=== PATIENT | female | born 1970 | race Caucasian/White ===

== ENCOUNTER → 2016-11-26 | Outpatient (CLI) | payer MEDICAID ==
[~2016-11-26] MED LIST: CELEXA 20MG20 MG/TAB PO
== END ==
LOC: COL.LAB 15:15
DX: M79.604 Pain in right leg (principal)

== ENCOUNTER → 2016-12-29 | Outpatient (CLI) | payer MEDICAID | LOC: COL.RAD 11:02 | DX: R10.2 Pelvic and perineal pain (principal) ==

== ENCOUNTER 2017-04-14 11:30 | Outpatient (RCR) | payer MEDICAID | END 2017-04-24 12:27 | disposition still patient (30) | LOC: WSPT 11:30 | DX: M54.5 Low back pain (principal); G89.29 Other chronic pain ==

== ENCOUNTER → 2017-11-19 | Outpatient (CLI) | payer MEDICAID | LOC: MC.RAD 11:08 | DX: Z12.31 Encounter for screening mammogram for malignant neoplasm of breast (principal) ==

== ENCOUNTER 2018-04-29 17:24 | Emergency (ER) | payer MEDICAID ==
[~2018-04-29] VITALS: Ht 167.6 cm; Wt 109.1 kg
[2018-04-29 18:33] LABS: BASO # 0.1 (0.0-0.2); BASO % 0.4 % (0.0-2.0); EOS # 0.1 (0.0-0.7); EOS % 0.5 % (0-4.0); GRAN # 11.1 (1.4-6.5); GRAN % 75.6 % (42.2-75.2); HEMATOCRIT 44.3 % (37.0-47.0); HEMOGLOBIN 15.3 g/dl (12.5-16.0); LYMPH # 2.4 (1.2-3.4); LYMPH % 16.2 % (20.0-51.0); MEAN CELL VOLUME 86 fl (80.0-100.0); MEAN CORPUSCULAR HEMOGLOBIN 30 pg (27.0-31.0); MEAN CORPUSCULAR HGB CONC 35 g/dl (33.0-37.0); MEAN PLATELET VOLUME 11.6 fl (7.4-10.4); PLATELET COUNT 156 K/mm3 (130-400); RED BLOOD COUNT 5.14 M/mm3 (4.10-5.30); REDCELL DISTRIBUTION WIDTH-CV 11.7 % (11.5-14.5)
[2018-04-29] MEDS ORDERED: PAXIL 20MG20 MG PO (18:34)
[2018-04-29] MEDS ORDERED: GLUCOTROL10 MG PO (18:35)
[2018-04-29] MEDS ORDERED: PRAVACHOL 20MG20 MG PO (18:35)
[2018-04-29] MEDS ORDERED: AMITRIPTYLINE H50 M1 PO (18:35)
[2018-04-29 18:44] LABS: ALBUMIN 4.3 gm/dL (3.5-5.0); BILIRUBIN,TOTAL 0.9 mg/dL (0.0-1.0); CALCIUM 9.2 mg/dL (8.4-10.2); CREATININE, serum 0.52 mg/dL (0.52-1.25); POTASSIUM 4.1 mmol/L (3.4-5.0); TOTAL PROTEIN 8.5 gm/dL (6.4-8.2)
[2018-04-29] MEDS ORDERED: CLEOCIN HCL300 MG PO (21:40)
[2018-04-29 21:41] VITALS: BP 122/83; PULSE 84; TEMP 98.7
[2018-04-29] MEDS ORDERED: ZOFRAN ODT4 MG PO (21:53)
== END 2018-04-29 22:08 | disposition home or self-care (01) ==
LOC: COL.ER 17:24
PROVIDERS: Physician Assistant
DX: L02.212 Cutaneous abscess of back [any part, except buttock and flank] (principal); I10 Essential (primary) hypertension; F17.210 Nicotine dependence, cigarettes, uncomplicated; F41.9 Anxiety disorder, unspecified; F32.9 Major depressive disorder, single episode, unspecified; E11.9 Type 2 diabetes mellitus without complications; Z88.8 Allergy status to other drugs, medicaments and biological substances; Z79.84 Long term (current) use of oral hypoglycemic drugs
CPT/HCPCS: J7030